=== PATIENT | female | born 1965 | race African-American/Black ===

== ENCOUNTER 2017-10-20 14:58 | Emergency (ER) | payer OTHER ==
[~2017-10-20] VITALS: Ht 170.2 cm; Wt 93.1 kg
[2017-10-20 15:36] LABS: HEMOGLOBIN 12.7 G/DL (11.9-15.5); MCH 24.1 PG (29.0-34.0); MCHC 33.4 G/DL (30.0-36.0); MCV 72.1 FL (83-99); PLATELET COUNT 292 K/uL (156-360); RBC DIS.WIDTH-CV 15.9 % (11.8-14.6); RBC DIS.WIDTH-SD 40.2 % (39-53); RED BLOOD COUNT 5.27 M/uL (3.80-5.20); WHITE BLOOD COUNT 22.2 K/uL (4.1-10.2)
[2017-10-20 15:39] LABS: CHLORIDE 106 mEq/L (99-109); POTASSIUM 3.7 mEq/L (3.7-5.4); SODIUM 141 mEq/L (136-147)
[2017-10-20 15:41] LABS: GLUCOSE 121 mg/dL (70-99)
[2017-10-20 15:45] LABS: GFR ESTIMATE (CALCULATED) > 59 mL/min/; UREA NITROGEN (BUN) 21 mg/dL (9-23)
[2017-10-20 15:51] LABS: TROP-I INTERPRETATION NEGATIVE; TROPONIN-I < 0.01 ng/mL (0.0-0.30)
[2017-10-20 16:51] LABS: ALBUMIN 4.1 g/dL (3.2-4.8)
[2017-10-20 16:56] LABS: TOTAL BILIRUBIN 1.3 mg/dL (0.0-1.0)
[2017-10-20 16:57] LABS: ALKALINE PHOSPHATASE 95 IU/L (3-129)
[2017-10-20 16:59] LABS: AST (GOT) 31 IU/L (2-34); DIRECT BILIRUBIN 0.8 mg/dL (0.0-0.3)
[2017-10-20 17:00] LABS: ALT (GPT) 81 IU/L (3-49)
[2017-10-20 17:01] LABS: LIPASE 18 U/L (1.0-51.0)
[2017-10-20 17:50] LABS: D-DIMER ELISA < 150.00 ng/mLDDU (<230)
[2017-10-20] MEDS ORDERED: PREDNISONE10 M1 PO (19:39)
[2017-10-20] MEDS ORDERED: MOTRIN600 MG PO (19:39)
[2017-10-20] MEDS ORDERED: ZITHROMAX Z-PA250 MG PO (19:39)
[2017-10-20 19:57] VITALS: BP 114/87
== END 2017-10-20 20:11 | disposition home or self-care (01) ==
LOC: EME 14:58
PROVIDERS: Physician Assistant
DX: R09.1 Pleurisy (principal); R11.2 Nausea with vomiting, unspecified; R19.7 Diarrhea, unspecified; R94.31 Abnormal electrocardiogram [ECG] [EKG]; I10 Essential (primary) hypertension; F17.200 Nicotine dependence, unspecified, uncomplicated
CPT/HCPCS: 71046; 76705; 80048; 80076; 83690; 84484; 85027; 85379; 93005; 94640; 99281; 99284; J1885

== ENCOUNTER 2017-10-26 09:31 | Inpatient (IN) | payer OTHER ==
[~2017-10-26] VITALS: Ht 170.2 cm; Wt 93.6 kg
[~2017-10-26 09:31] MED LIST: MOTRIN600 MG PO; PREDNISONE10 M1 PO; ZITHROMAX Z-PA250 MG PO
[2017-10-26 10:53] LABS: CHLORIDE 103 mEq/L (99-109); SODIUM 136 mEq/L (136-147)
[2017-10-26 10:54] LABS: POTASSIUM 2.9 mEq/L (3.7-5.4)
[2017-10-26 10:55] LABS: GLUCOSE 128 mg/dL (70-99)
[2017-10-26 10:56] LABS: HEMOGLOBIN 10.7 G/DL (11.9-15.5); MCH 23.8 PG (29.0-34.0); MCHC 34.5 G/DL (30.0-36.0); MCV 68.9 FL (83-99); PLATELET COUNT 369 K/uL (156-360); RBC DIS.WIDTH-CV 14.7 % (11.8-14.6); RBC DIS.WIDTH-SD 36.5 % (39-53); WHITE BLOOD COUNT 17.9 K/uL (4.1-10.2)
[2017-10-26 10:59] LABS: GFR ESTIMATE (CALCULATED) > 59 mL/min/
[2017-10-26 11:00] LABS: UREA NITROGEN (BUN) 20 mg/dL (9-23)
[2017-10-26] MEDS ORDERED: PREDNISONE10 MG PO (11:00)
[2017-10-26] MEDS ORDERED: IBUPROFEN600 MG PO (11:00)
[2017-10-26] MEDS ORDERED: AMLODIPINE BESY10 MG PO (11:02)
[2017-10-26] MEDS ORDERED: BUPROPION XL150 MG PO (11:02)
[2017-10-26] MEDS ORDERED: VENTOLIN HFA18 GM IH (11:03)
[2017-10-26] MEDS ORDERED: ATENOLOL50 MG PO (11:05)
[2017-10-26] MEDS ORDERED: ATENOLOL100 MG PO (11:05)
[2017-10-26 16:55] VITALS: BP 109/68
[2017-10-26 19:44] VITALS: BP 100/53
[2017-10-26 23:35] VITALS: BP 110/60
[2017-10-27 03:16] VITALS: BP 107/58
[2017-10-27 06:32] LABS: HEMATOCRIT 28.2 % (36.0-46.0); HEMOGLOBIN 9.4 G/DL (11.9-15.5); MCH 23.4 PG (29.0-34.0); MCHC 33.3 G/DL (30.0-36.0); MCV 70.3 FL (83-99); PLATELET COUNT 346 K/uL (156-360); RBC DIS.WIDTH-CV 15.2 % (11.8-14.6); RBC DIS.WIDTH-SD 37.8 % (39-53); RED BLOOD COUNT 4.01 M/uL (3.80-5.20); WHITE BLOOD COUNT 16.5 K/uL (4.1-10.2)
[2017-10-27 06:55] LABS: CHLORIDE 107 MEQ/L (99-109); CREATININE 0.7 MG/DL (0.6-1.3); GFR ESTIMATE (CALCULATED) > 59 mL/min/; GLUCOSE 177 mg/dL (70-99); SODIUM 138 MEQ/L (136-147); UREA NITROGEN (BUN) 16 mg/dL (9-23)
[2017-10-27 07:12] VITALS: BP 127/76
[2017-10-27 15:21] VITALS: BP 156/84
[2017-10-27 19:38] VITALS: BP 141/72
[2017-10-27 23:35] VITALS: BP 117/67
[2017-10-28 03:20] VITALS: BP 133/72
[2017-10-28 07:37] VITALS: BP 133/80
[2017-10-28 08:12] LABS: HEMATOCRIT 29.6 % (36.0-46.0); HEMOGLOBIN 9.7 G/DL (11.9-15.5); MCH 23.2 PG (29.0-34.0); MCHC 32.8 G/DL (30.0-36.0); MCV 70.8 FL (83-99); PLATELET COUNT 449 K/uL (156-360); RBC DIS.WIDTH-CV 15.5 % (11.8-14.6); RBC DIS.WIDTH-SD 38.9 % (39-53); RED BLOOD COUNT 4.18 M/uL (3.80-5.20); WHITE BLOOD COUNT 10.7 K/uL (4.1-10.2)
[2017-10-28 08:36] LABS: CHLORIDE 110 MEQ/L (99-109); CREATININE 0.8 MG/DL (0.6-1.3); GFR ESTIMATE (CALCULATED) > 59 mL/min/; POTASSIUM 3.7 MEQ/L (3.7-5.4); SODIUM 138 MEQ/L (136-147); UREA NITROGEN (BUN) 15 mg/dL (9-23)
[2017-10-28 08:38] LABS: GLUCOSE 93 mg/dL (70-99)
[2017-10-28 11:54] VITALS: BP 140/75
[2017-10-28 15:40] VITALS: BP 149/82
[2017-10-28 20:20] VITALS: BP 168/98
[2017-10-29 00:14] VITALS: BP 168/85
[2017-10-29 07:37] LABS: HEMATOCRIT 29.1 % (36.0-46.0); HEMOGLOBIN 9.8 G/DL (11.9-15.5); MCH 23.5 PG (29.0-34.0); MCHC 33.7 G/DL (30.0-36.0); MCV 69.8 FL (83-99); PLATELET COUNT 473 K/uL (156-360); RBC DIS.WIDTH-CV 15.2 % (11.8-14.6); RBC DIS.WIDTH-SD 37.6 % (39-53); RED BLOOD COUNT 4.17 M/uL (3.80-5.20); WHITE BLOOD COUNT 8.6 K/uL (4.1-10.2)
[2017-10-29 07:52] LABS: CHLORIDE 108 MEQ/L (99-109); CREATININE 0.7 MG/DL (0.6-1.3); GFR ESTIMATE (CALCULATED) > 59 mL/min/; GLUCOSE 98 mg/dL (70-99); POTASSIUM 3.5 MEQ/L (3.7-5.4); SODIUM 142 MEQ/L (136-147); UREA NITROGEN (BUN) 8 mg/dL (9-23)
[2017-10-29 07:59] VITALS: BP 158/92
[2017-10-29 16:27] VITALS: BP 168/100
[2017-10-29 16:28] VITALS: BP 177/114
[2017-10-29 18:12] VITALS: BP 138/86
[2017-10-30] VITALS: BP 146/88
[2017-10-30 07:40] LABS: CHLORIDE 100 MEQ/L (99-109); CREATININE 0.7 MG/DL (0.6-1.3); GFR ESTIMATE (CALCULATED) > 59 mL/min/; GLUCOSE 138 mg/dL (70-99); POTASSIUM 3.8 MEQ/L (3.7-5.4); SODIUM 138 MEQ/L (136-147); UREA NITROGEN (BUN) 8 mg/dL (9-23)
[2017-10-30 08:00] VITALS: BP 133/79
[2017-10-30] MEDS ORDERED: LEVOFLOXACIN500 MG PO (09:10)
== END 2017-10-30 10:59 | disposition home or self-care (01) | DRG 193 ==
LOC: EME 09:31 → 2EAST 13:38 → EDOF 13:38 → ENRESERV 13:45 → EDOF 13:48 → ENRESERV 15:05 → 2EAST 16:51
PROVIDERS: Emergency Medicine Emergency Medical Services; Hospitalist; Internal Medicine
DX: J15.4 Pneumonia due to other streptococci (principal); J44.0 Chronic obstructive pulmonary disease with (acute) lower respiratory infection; J96.01 Acute respiratory failure with hypoxia; J44.1 Chronic obstructive pulmonary disease with (acute) exacerbation; J45.901 Unspecified asthma with (acute) exacerbation; E27.8 Other specified disorders of adrenal gland; E87.6 Hypokalemia; D64.9 Anemia, unspecified; I10 Essential (primary) hypertension; B19.20 Unspecified viral hepatitis C without hepatic coma; F12.90 Cannabis use, unspecified, uncomplicated; F17.200 Nicotine dependence, unspecified, uncomplicated; Z71.6 Tobacco abuse counseling; Z82.49 Family history of ischemic heart disease and other diseases of the circulatory system; Z83.3 Family history of diabetes mellitus
CPT/HCPCS: 71045; 71046; 71275; 80048; 80202; 83605; 85027; 87040; 87070; 87205; 87449; 93005; 94010; 94640; 94640 76; 94644; 94799; 99202; 99281; 99285; J0696; J1650; J2405; J2543; J3370; J3475; J7030; J7040; J7050; J7512

== ENCOUNTER 2017-11-10 09:27 | Inpatient (IN) | payer OTHER ==
[~2017-11-10] VITALS: Ht 170.2 cm; Wt 93.0 kg
[~2017-11-10 09:27] MED LIST changes: +AMLODIPINE BESY10 MG PO; +ATENOLOL100 MG PO; +ATENOLOL50 MG PO; +BUPROPION XL150 MG PO; +IBUPROFEN600 MG PO; +LEVOFLOXACIN500 MG PO; +PREDNISONE10 MG PO; +VENTOLIN HFA18 GM IH
[2017-11-10 11:02] LABS: HEMATOCRIT 33.5 % (36.0-46.0); HEMOGLOBIN 10.9 G/DL (11.9-15.5); MCH 23.7 PG (29.0-34.0); MCHC 32.5 G/DL (30.0-36.0); MCV 72.8 FL (83-99); PLATELET COUNT 439 K/uL (156-360); RBC DIS.WIDTH-CV 17.1 % (11.8-14.6); RBC DIS.WIDTH-SD 42.5 % (39-53); WHITE BLOOD COUNT 7.9 K/uL (4.1-10.2)
[2017-11-10 11:12] LABS: CHLORIDE 112 mEq/L (99-109); POTASSIUM 4.9 mEq/L (3.7-5.4); SODIUM 140 mEq/L (136-147)
[2017-11-10 11:14] LABS: GLUCOSE 104 mg/dL (70-99)
[2017-11-10 11:17] LABS: CREATININE 0.8 mg/dL (0.6-1.3); GFR ESTIMATE (CALCULATED) > 59 mL/min/
[2017-11-10 11:18] LABS: UREA NITROGEN (BUN) 11 mg/dL (9-23)
[2017-11-10] MEDS ORDERED: MOTRIN600 MG PO (12:54)
[2017-11-10] MEDS ORDERED: FLONASE16 G1 BOTH NARES (12:54)
[2017-11-10] MEDS ORDERED: FISH OIL 1,0001 EAC7 PO (12:55)
[2017-11-10 14:30] LABS: APPEARANCE SL.HAZY ((CLEAR)); BILIRUBIN NEGATIVE; BLOOD NEGATIVE; COLOR YELLOW ((YELLOW)); GLUCOSE (STRIP) NEGATIVE; KETONES NEGATIVE; LEUKOCYTES NEGATIVE; NITRITE NEGATIVE; PROTEIN (STRIP) NEGATIVE; SPECIFIC GRAVITY 1.013 (1.000-1.030); UROBILINOGEN 0.2 MG/DL (0.2-1.0)
[2017-11-10 14:33] LABS: BACTERIA RARE /HPF; EPITHELIAL CELLS 1+ /HPF; MUCUS TRACE /LPF; RED BLOOD CELLS 0-5 /HPF (0-5); UCUL ADDED? NO; WHITE BLOOD CELLS 0-5 /HPF (0-5)
[2017-11-10 14:35] LABS: SERUM ETHYL ALCOHOL < 10 mg/dL
[2017-11-10 15:25] LABS: THYROTROPIN (TSH) 0.93 MIU/L (0.4-5.5)
[2017-11-10 16:46] VITALS: BP 133/88
[2017-11-10 19:58] VITALS: BP 162/77
[2017-11-10] MEDS ORDERED: PAROXETINE HCL10 MG PO (22:19)
[2017-11-11 01:26] VITALS: BP 162/94
[2017-11-11 06:12] LABS: BASOPHIL (%) 0.5 % (0-1); EOSINOPHIL (%) 0.3 % (0-5); HEMATOCRIT 31.9 % (36.0-46.0); HEMOGLOBIN 10.3 G/DL (11.9-15.5); IMMATURE GRANULOCYTE (%) 0.6 % (0.0-0.7); LYMPHOCYTE (%) 38.1 % (15-42); LYMPHOCYTE COUNT 2.4 K/uL (1.0-2.8); MCH 23.4 PG (29.0-34.0); MCHC 32.3 G/DL (30.0-36.0); MCV 72.5 FL (83-99); MONOCYTE (%) 8.8 % (3-12); MONOCYTE COUNT 0.6 K/uL (0-0.8); NEUTROPHIL (%) 51.7 % (45-76); NEUTROPHIL COUNT 3.3 K/uL (1.8-6.4); PLATELET COUNT 379 K/uL (156-360); RBC DIS.WIDTH-CV 16.9 % (11.8-14.6); RBC DIS.WIDTH-SD 42.1 % (39-53); WHITE BLOOD COUNT 6.4 K/uL (4.1-10.2)
[2017-11-11 06:26] LABS: CHLORIDE 109 MEQ/L (99-109); CREATININE 0.7 MG/DL (0.6-1.3); GFR ESTIMATE (CALCULATED) > 59 mL/min/; GLUCOSE 120 mg/dL (70-99); POTASSIUM 4.3 MEQ/L (3.7-5.4); SODIUM 139 MEQ/L (136-147); UREA NITROGEN (BUN) 11 mg/dL (9-23)
[2017-11-11 08:21] LABS: PTT 30.5 SEC (25-37)
[2017-11-11 08:39] VITALS: BP 186/88
[2017-11-11 11:15] LABS: TYPE OF FLUID PLEURAL
[2017-11-11 11:44] LABS: BODY FLUID GLUCOSE 133 MG/DL; BODY FLUID LDH 201 IU/L; BODY FLUID PROTEIN 3.8 G/DL
[2017-11-11 11:48] VITALS: BP 143/92
[2017-11-11 11:50] LABS: APPEARANCE HAZY-YELLOW; BODY FLUID EOSINOPHILS 3 % (0-25); BODY FLUID RBC'S 6000 /MM^3 (0-100); BODY FLUID WBC'S 4528 /MM^3 (0-500); MONONUCLEAR WBC'S 38 %; POLYNUCLEAR WBC'S 59 % (0-25)
[2017-11-11 15:40] VITALS: BP 135/80
[2017-11-11 19:37] VITALS: BP 127/77
[2017-11-11 23:30] VITALS: BP 145/85
[2017-11-12 03:36] VITALS: BP 147/98
[2017-11-12 06:58] VITALS: BP 143/97
[2017-11-12 11:05] VITALS: BP 165/88
[2017-11-12 12:24] LABS: TOTAL PROTEIN 7.3 G/DL (6.4-8.3)
[2017-11-12 15:35] VITALS: BP 139/81
[2017-11-13 00:04] VITALS: BP 139/76
[2017-11-13 07:00] VITALS: BP 142/95
[2017-11-13] MEDS ORDERED: PREDNISONE20 MG PO (10:13)
[2017-11-13] MEDS ORDERED: LEVOFLOXACIN500 MG PO (10:13)
== END 2017-11-13 13:52 | disposition home or self-care (01) | DRG 190 ==
LOC: EME 09:27 → 5EAST 13:06 → EDOF 13:06 → ENRESERV 13:09 → 5EAST 16:19
PROVIDERS: Internal Medicine; Internal Medicine Pulmonary Disease; Radiology Diagnostic Radiology
PROC: 0W993ZZ Drainage of Right Pleural Cavity, Percutaneous Approach (ICD-10-PCS; principal; 2017-11-11)
DX: J44.0 Chronic obstructive pulmonary disease with (acute) lower respiratory infection (principal); J13 Pneumonia due to Streptococcus pneumoniae; Y95 Nosocomial condition; J91.8 Pleural effusion in other conditions classified elsewhere; J44.1 Chronic obstructive pulmonary disease with (acute) exacerbation; J90 Pleural effusion, not elsewhere classified; I10 Essential (primary) hypertension; D64.9 Anemia, unspecified; E66.9 Obesity, unspecified; F17.210 Nicotine dependence, cigarettes, uncomplicated; Z68.32 Body mass index [BMI] 32.0-32.9, adult; Z86.19 Personal history of other infectious and parasitic diseases
CPT/HCPCS: 71046; 76942; 80048; 80202; 81003; 82945; 83036; 83605; 83615; 83615 91; 84155; 84157; 84443; 85025; 85027; 85610; 85730; 87040; 87070; 87075; 87116; 87205; 87206; 87449; 87502; 87641; 88108; 88305; 89051; 93005; 94010; 94640; 94640 76; 94667; 94668; 99202; 99281; 99285; G0480; J0456; J0692; J0696; J1650; J1885; J3370; J7512